=== PATIENT | male | born 1955 | race Caucasian/White ===

== ENCOUNTER 2016-06-25 11:45 | Emergency (ER) | payer OTHER ==
[~2016-06-25] VITALS: Ht 177.8 cm; Wt 112.5 kg
[~2016-06-25 11:45] MED LIST: ALEVE220 MG PO; FISH OIL 1,0001 EAC7 PO; LO-DOSE ASPIRIN81 M1 PO; LOPRESSOR25 MG PO; NEURONTIN400 MG PO; NORCO 5/3251 TABLET PO; OXYCONTIN20 MG PO; OXYCONTIN40 MG PO; PEPCID20 MG PO; PROTONIX40 MG PO; ROXICODONE15 MG PO; SOMA350 MG PO; TOPROL XL25 MG PO
[2016-06-25 14:21] LABS: ADD MIUA? NO; BILIRUBIN NEGATIVE; BLOOD NEGATIVE; COLOR YELLOW ((YELLOW)); GLUCOSE (STRIP) NEGATIVE; KETONES NEGATIVE; LEUKOCYTES NEGATIVE; NITRITE NEGATIVE; PROTEIN (STRIP) NEGATIVE; SPECIFIC GRAVITY 1.025 (1.000-1.030); UCUL ADDED? NO; UROBILINOGEN 0.2 MG/DL (0.2-1.0)
[2016-06-25 14:34] LABS: HEMATOCRIT 45.2 % (38.0-50.0); MCH 30.9 PG (29.0-34.0); MCV 88.5 FL (86-99); MEAN PLAT.VOLUME 10.3 uM^3 (9.0-12.4); PLATELET COUNT 188 K/uL (156-360); RBC DIS.WIDTH-CV 12.2 % (11.8-14.6); RBC DIS.WIDTH-SD 38.8 % (39-53); RED BLOOD COUNT 5.11 M/uL (4.00-5.50); WHITE BLOOD COUNT 8.2 K/uL (4.1-10.2)
[2016-06-25 14:53] LABS: CHLORIDE 106 mEq/L (99-109); POTASSIUM 4.4 mEq/L (3.7-5.4); SODIUM 139 mEq/L (136-147)
[2016-06-25 14:55] LABS: GLUCOSE 104 mg/dL (70-99)
[2016-06-25 14:57] LABS: ANION GAP 8 MEQ/L (2-14); TOTAL BILIRUBIN 0.7 mg/dL (0.0-1.0)
[2016-06-25 14:59] LABS: ALKALINE PHOSPHATASE 89 IU/L (3-129); GFR ESTIMATE (CALCULATED) > 59 mL/min/
[2016-06-25 15:00] LABS: UREA NITROGEN (BUN) 18 mg/dL (9-23)
[2016-06-25 15:03] LABS: LIPASE 11 U/L (1.0-51.0)
[2016-06-25 16:17] VITALS: BP 148/90
== END 2016-06-25 16:21 | disposition home or self-care (01) ==
LOC: EME 11:45 → RME 11:45
PROVIDERS: Physician Assistant
DX: M54.5 Low back pain (principal); R10.9 Unspecified abdominal pain; G89.29 Other chronic pain; I10 Essential (primary) hypertension; I25.2 Old myocardial infarction; K21.9 Gastro-esophageal reflux disease without esophagitis; Z98.61 Coronary angioplasty status
CPT/HCPCS: 74176; 80053; 81003; 83690; 85027; 99281; 99284; J1885

== ENCOUNTER 2017-01-01 10:33 | Day surgery (SDC) | payer OTHER ==
[~2017-01-01] VITALS: Ht 177.8 cm; Wt 113.4 kg
[~2017-01-01 10:33] MED LIST changes: +FLEXERIL10 MG PO; +NITROSTAT0.4 MG SL; +OXYCONTIN15 MG PO
== END 2017-01-01 12:44 | disposition home or self-care (01) ==
LOC: PAIN 10:33 → SDC 11:30 → PAIN 11:30
DX: M47.26 Other spondylosis with radiculopathy, lumbar region (principal); M48.06 Spinal stenosis, lumbar region; M54.2 Cervicalgia; I10 Essential (primary) hypertension; F41.9 Anxiety disorder, unspecified; E78.5 Hyperlipidemia, unspecified; E55.9 Vitamin D deficiency, unspecified; G47.33 Obstructive sleep apnea (adult) (pediatric); Z79.891 Long term (current) use of opiate analgesic; Z79.899 Other long term (current) drug therapy; Z79.82 Long term (current) use of aspirin; I25.2 Old myocardial infarction
CPT/HCPCS: J1030; J2250; J3010; S0020

== ENCOUNTER 2017-01-08 10:38 | Day surgery (SDC) | payer OTHER ==
[~2017-01-08] VITALS: Ht 177.8 cm; Wt 113.4 kg
== END 2017-01-08 12:18 | disposition home or self-care (01) ==
LOC: PAIN 10:38 → SDC 11:30 → PAIN 12:18
DX: M47.26 Other spondylosis with radiculopathy, lumbar region (principal); M48.06 Spinal stenosis, lumbar region; M62.838 Other muscle spasm; I10 Essential (primary) hypertension; F41.9 Anxiety disorder, unspecified; K21.9 Gastro-esophageal reflux disease without esophagitis; I25.10 Atherosclerotic heart disease of native coronary artery without angina pectoris; E78.5 Hyperlipidemia, unspecified; M62.81 Muscle weakness (generalized); E55.9 Vitamin D deficiency, unspecified; Z79.82 Long term (current) use of aspirin; Z79.891 Long term (current) use of opiate analgesic
CPT/HCPCS: J1030; J2250; J3010; S0020

== ENCOUNTER 2017-03-26 12:25 | Day surgery (SDC) | payer OTHER ==
[~2017-03-26] VITALS: Ht 175.3 cm; Wt 116.1 kg
== END 2017-03-26 14:05 | disposition home or self-care (01) ==
LOC: PAIN 12:25 → SDC 12:30 → PAIN 12:30
DX: M47.26 Other spondylosis with radiculopathy, lumbar region (principal); M51.16 Intervertebral disc disorders with radiculopathy, lumbar region; M48.061 Spinal stenosis, lumbar region without neurogenic claudication; F32.9 Major depressive disorder, single episode, unspecified; K21.9 Gastro-esophageal reflux disease without esophagitis; E78.5 Hyperlipidemia, unspecified; E55.9 Vitamin D deficiency, unspecified; Z79.82 Long term (current) use of aspirin; G47.33 Obstructive sleep apnea (adult) (pediatric)
CPT/HCPCS: J1030; J1885; J2250; J3010; S0020

== ENCOUNTER 2017-04-02 14:39 | Day surgery (SDC) | payer OTHER ==
[~2017-04-02] VITALS: Ht 175.3 cm; Wt 116.1 kg
== END 2017-04-02 16:35 | disposition home or self-care (01) ==
LOC: PAIN 14:39 → SDC 15:00 → PAIN 16:35
DX: M47.26 Other spondylosis with radiculopathy, lumbar region (principal); M48.061 Spinal stenosis, lumbar region without neurogenic claudication; I10 Essential (primary) hypertension; K21.9 Gastro-esophageal reflux disease without esophagitis; I25.10 Atherosclerotic heart disease of native coronary artery without angina pectoris; Z79.891 Long term (current) use of opiate analgesic; Z79.82 Long term (current) use of aspirin
CPT/HCPCS: J1030; J1885; J2250; J3010; S0020